=== PATIENT | female | born 1980 ===

== ENCOUNTER 2024-02-05 06:34 | Day surgery (SDC) | payer BC, SELFPAY ==
[2024-02-05 11:59] LABS: Glucose - Point of Care 159 mg/dl (70-99)
== END 2024-02-05 13:17 | disposition home or self-care (01) ==
LOC: GI 06:34
PROVIDERS: ATTENDING PHYSICIAN Internal Medicine
DX: Z12.11 Encounter for screening for malignant neoplasm of colon (principal); Z86.0100 Personal history of colon polyps, unspecified
CPT/HCPCS: G0121; 82962

== ENCOUNTER 2024-09-09 06:19 | Day surgery (SDC) | payer BC, SELFPAY ==
[2024-09-09 07:25] LABS: Glucose - Point of Care 169 mg/dl (70-99)
== END 2024-09-09 12:46 | disposition home or self-care (01) ==
LOC: GI 06:19
PROVIDERS: ATTENDING PHYSICIAN Internal Medicine
DX: Z12.11 Encounter for screening for malignant neoplasm of colon (principal); K63.5 Polyp of colon; K62.1 Rectal polyp; Z86.0100 Personal history of colon polyps, unspecified
CPT/HCPCS: 45380; 88305; 82962